=== PATIENT | male | born 1970 | race Hispanic/Latino ===

== ENCOUNTER 2017-03-22 23:38 | Inpatient (IN) | payer OTHER ==
[~2017-03-22] VITALS: Ht 157.5 cm; Wt 55.2 kg
[2017-03-23] VITALS (23 sets, daily range): BP systolic 101–147; BP diastolic 66–116
--- NOTE | 2017-03-23 00:28 | ED GU-Male ---
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 Exam Limitations: language barrier History of Present Illness Time seen by provider: 23:55 Initial Comments C/O BLOOD IN URINE AND PAIN/SWELLING IN RIGHT TESTICLE FOR OVER A MONTH WENT TO [facility] A MONTH AGO, AND UA DONE AND WAS PLACED ON CIPRO X 7 DAYS SYMPTOMS GOT BETTER, THEN RETURNED AGAIN 10 DAYS AGO C/O MUCH PAIN AND BURNING ON URINATION, AND HAS NOCTURIA 4-5 TIMES A NIGHT ( NEW PROBLEM) HAD SUBJECTIVE FEVER A COUPLE OF DAYS AGO HAS HAD BILATERAL LOWER BACK PAIN AND BILATERAL GROIN PAIN/SUPRAPUBIC PAIN TODAY HAS HAD NAUSEA AND VOMITING--CAN'T KEEP WATER DOWN NO HISTORY OF ANY SIMILAR PROBLEMS PRIOR TO A MONTH AGO PCP: [facility] Allergies and Home Medications Allergies Coded Allergies: No Known Drug Allergies (Unverified , 03/22/17) Constitutional: see HPI, fever Respiratory: no symptoms reported Cardiovascular: no symptoms reported Gastrointestinal: see HPI, abdominal pain, loss of appetite, nausea, vomiting Genitourinary: see HPI, burning, dysuria, flank pain, hematuria, pain, other ( NOCTURIA) Musculoskeletal: see HPI, back pain Skin: no symptoms reported Psychiatric/Neurological: No Symptoms Reported Endocrine: No Symptoms Reported Hematologic/Lymphatic: No Symptoms Reported Past Ohjwlbn-Jyrsmi-Ughfbe Hx Patient Social History Alcohol Use: Regular Use (HEAVY AT TIMES) Recreational Drug Use: No Smoking Status: Current Everyday Smoker (1/2 PPD) Recent Foreign Travel: No Contact w/Someone Who Travel: No Surgeries HX Surgeries: Yes (REMOVAL OF CYST ON SCALP) Respiratory Hx Respiratory Disorders: No Cardiovascular Hx Cardiac Disorders: Yes Cardiac Disorders: Hypertension Neurological Hx Neurological Disorders: No Reproductive System Hx Reproductive Disorders: No Genitourinary Hx Genitourinary Disorders: No Gastrointestinal Hx Gastrointestinal Disorders: No Musculoskeletal Hx Musculoskeletal Disorders: No Endocrine Hx Endocrine Disorders: Yes Endocrine Disorders: Diabetes, Non-Insulin dep HEENT HX ENT Disorders: No Cancer Hx Cancer: No Psychosocial Hx Psychiatric Problems: No Integumentary HX Skin/Integumentary Disorder: No Blood Transfusions Hx Blood Disorders: No Physical Exam Vital Signs Capillary Refill : General Appearance: WD/WN, no apparent distress Cardiovascular: regular rate, rhythm, no murmur Respiratory: normal breath sounds, no respiratory distress, no accessory muscle use Gastrointestinal: normal bowel sounds, soft, no organomegaly, tenderness ( SUPRAPUBIC) Male: inguinal tenderness (BILATERALLY), testicular tenderness (MARKED RIGHT TESTICULAR TENDERNESS, SWELLING, WARMTH, ERYTHEMA AND INDURATION. NO AREAS OF FLUCTUANCE. NO DRAINAGE. 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, no motor/sensory deficits, alert, normal mood/affect, oriented x 3 Skin: normal color, warm/dry, No rash Focused Exam Lactic Acid Level Laboratory Tests Test 03/23/17 01:21 Lactic Acid Level 0.95 MMOL/L (0.50-2.00) Progress/Results/Core Measures Results/Orders Lab Results Laboratory Tests Test 03/22/17 23:54 03/23/17 00:52 03/23/17 01:21 Range/Units Urine Color YELLOW Urine Clarity SLIGHTLY CLOUDY Urine pH 6 5-9 Urine Specific [place] 1.015 L 1.016-1.022 Urine Protein 3+ H NEGATIVE Urine Glucose (UA) 3+ H NEGATIVE Urine Ketones 4+ H NEGATIVE Urine Nitrite NEGATIVE NEGATIVE Urine Bilirubin NEGATIVE NEGATIVE Urine Urobilinogen NORMAL NORMAL MG/DL Urine Leukocyte Esterase 3+ H NEGATIVE Urine RBC (Auto) 5+ H NEGATIVE Urine RBC 25-50 H /HPF Urine WBC >100 H /HPF Urine Squamous Epithelial Cells 2-5 /HPF Urine Crystals NONE /LPF Urine Bacteria LARGE H /HPF Urine Casts NONE /LPF Urine Mucus NEGATIVE /LPF Urine Culture Indicated YES White Blood Count 27.1 H 4.3-11.0 10^3/uL Red Blood Count 4.01 L 4.35-5.85 10^6/uL Hemoglobin 11.9 L 13.3-17.7 G/DL Hematocrit 34 L 40-54 % Mean Corpuscular Volume 85 80-99 FL Mean Corpuscular Hemoglobin 30 25-34 PG Mean Corpuscular Hemoglobin Concent 35 32-36 G/DL Red Cell Distribution Width 11.8 10.0-14.5 % Platelet Count 431 H 130-400 10^3/uL Mean Platelet Volume 8.9 7.4-10.4 FL Neutrophils (%) (Auto) 88 H 42-75 % Lymphocytes (%) (Auto) 4 L 12-44 % Monocytes (%) (Auto) 8 0-12 % Eosinophils (%) (Auto) 0 0-10 % Basophils (%) (Auto) 0 0-10 % Neutrophils # (Auto) 23.9 H 1.8-7.8 X 10^3 Lymphocytes # (Auto) 1.2 1.0-4.0 X 10^3 Monocytes # (Auto) 2.0 H 0.0-1.0 X 10^3 Eosinophils # (Auto) 0.0 0.0-0.3 10^3/uL Basophils # (Auto) 0.0 0.0-0.1 10^3/uL Neutrophils % (Manual) 85 % Lymphocytes % (Manual) 3 % Monocytes % (Manual) 5 % Band Neutrophils 7 % Blood Morphology Comment NORMAL Sodium Level 127 L 135-145 MMOL/L Potassium Level 3.9 3.6-5.0 MMOL/L Chloride Level 90 L 98-107 MMOL/L Carbon Dioxide Level 21 21-32 MMOL/L Anion Gap 16 H 5-14 MMOL/L Blood Urea Nitrogen 14 7-18 MG/DL Creatinine 1.09 0.60-1.30 MG/DL Estimat Glomerular Filtration Rate > 60 BUN/Creatinine Ratio 13 Glucose Level 277 H 70-105 MG/DL Calcium Level 9.5 8.5-10.1 MG/DL Total Bilirubin 1.3 H 0.1-1.0 MG/DL Aspartate Amino Transf (AST/SGOT) 14 5-34 U/L Alanine Aminotransferase (ALT/SGPT) 25 0-55 U/L Alkaline Phosphatase 93 40-136 U/L Total Protein 7.7 6.4-8.2 G/DL Albumin 3.5 3.2-4.5 G/DL Amylase Level 23 L 25-125 U/L Lipase 9 8-78 U/L Lactic Acid Level 0.95 0.50-2.00 MMOL/L My Orders Orders - NAUN PANDA DO Amylase (03/22/17 23:56) Cbc With Automated Diff (03/22/17 23:56) Comprehensive Metabolic Panel (03/22/17 23:56) Lipase (03/22/17 23:56) Ua Culture If Indicated (03/22/17 23:56) Ct Abd/Pelvis Wo(Kidney Stone) (03/23/17 00:01) Acute Abd Series (03/23/17 00:01) Urine Culture (03/22/17 23:54) Manual Differential (03/23/17 00:52) Ceftriaxone Injection (Rocephin Injectio (03/23/17 01:15) Saline Lock/Iv-Start (03/23/17 01:10) Lactic Acid Analyzer (03/23/17 01:10) Blood Culture (03/23/17 01:10) Ondansetron Injection (Zofran Injectio (03/23/17 01:15) Ketorolac Injection (Toradol Injection) (03/23/17 01:10) Saline Lock/Iv-Start (03/23/17 01:10) Ns Iv 1000 Ml (Sodium Chloride 0.9%) (03/23/17 01:10) Medications Given in ED Current Medications Medications Dose Ordered Sig/[place]eno Route Start Time Stop Time Status Last Admin Dose Admin Ceftriaxone Sodium 1000 mg/ Sodium Chloride 50 ml @ 100 mls/hr ONCE ONCE IV 03/23/17 01:15 03/23/17 02:19 DC 03/23/17 02:01 100 MLS/HR Ondansetron HCl 4 mg ONCE ONCE IVP 03/23/17 01:15 03/23/17 02:19 DC 03/23/17 01:59 4 MG Sodium Chloride 1,000 ml @ 0 mls/hr Q0M ONCE IV 03/23/17 01:10 03/23/17 02:19 DC 03/23/17 01:59 1,000 MLS/HR Progress Note : Progress Note NO VOMITING DURING ER STAY Diagnostic Imaging Comments ACUTE ABDOMEN XRAYS--NO ACUTE PROCESS, PENDING RADIOLOGIST REVIEW CT ABDOMEN/PELVIS--BILATERAL PERINEPHRIC AND PERIURETERAL INFILTRATION, WITH MURAL THICKENING OF BLADDER-POSSIBLE PYELONEPHRITIS/CYSTITIS/UTI.. SCROTUM-- SUSPECTED HYDROCOELES, NON -SPECIFIC DENSITIES IN INGUINAL CANALS, MORE PROMINENT ON THE RIGHT-LIKELY VESSELS, PERHAPS VARICOCOELE ON RIGHT. RETROPERITONEAL ADENOPATHY; POSSIBLE RIGHT INGUINAL HERNIA REPAIR ( PT HAS NOT HAD HERNIA SURGERY ) SPLENOMEGALY--PER [facility] VIA FAX @ 1737 Reviewed: Reviewed by Me Departure Communication Progress Notes 4686--SPOKE WITH DR. CURTIS, DONOR RECRUITER FOR [facility], ACCEPTS PT FOR ADMIT Impression Impression: Primary Impression: Pyelonephritis Additional Impressions: Sepsis NIDDM RIGHT SCROTAL SWELLING AND ERYTHEMA AND TENDERNESS Electrolyte imbalance Disposition: ADMITTED INPATIENT Condition: Stable Departure-Patient Inst. Referrals: NO,LOCAL PHYSICIAN (PCP/Family) Primary Care Physician NAUN PANDA DO March 23, 2017 00:28
[2017-03-23 00:32] LABS: BILIRUBIN,URINE NEGATIVE (NEGATIVE); KETONES,URINE 4+ (NEGATIVE); LEUKOCYTE ESTERASE ,URINE 3+ (NEGATIVE); NITRITE,URINE NEGATIVE (NEGATIVE); PH,URINE 6 (5-9); PROTEIN,URINE 3+ (NEGATIVE); UROBILINOGEN,URINE NORMAL (NORMAL)
[2017-03-23 00:47] LABS: WBC,URINE >100 /HPF
[2017-03-23 01:03] LABS: BASOPHILS % (AUTO) 0 % (0-10); EOSINOPHILS % (AUTO) 0 % (0-10); LYMPHOCYTES # (AUTO) 1.2 X 10^3 (1.0-4.0); LYMPHOCYTES % (AUTO) 4 % (12-44); MEAN CORPUSCULAR HEMOGLOBIN 30 PG (25-34); MEAN CORPUSCULAR HGB CONC 35 G/DL (32-36); MEAN CORPUSCULAR VOLUME 85 FL (80-99); MEAN PLATELET VOLUME 8.9 FL (7.4-10.4); MONOCYTES % (AUTO) 8 % (0-12); NEUTROPHILS # (AUTO) 23.9 X 10^3 (1.8-7.8); NEUTROPHILS % (AUTO) 88 % (42-75); PLATELET COUNT 431 10^3/uL (130-400); RED BLOOD COUNT 4.01 10^6/uL (4.35-5.85); RED CELL DISTRIBUTION WIDTH 11.8 % (10.0-14.5); WHITE BLOOD COUNT 27.1 10^3/uL (4.3-11.0)
[2017-03-23] MEDS ORDERED: NS IV 1000 ML 1,000 ML IV ONE (01:10)
[2017-03-23] MEDS ORDERED: KETOROLAC 30 MG/ML VIAL IVP STA (01:10)
[2017-03-23] MEDS ORDERED: ONDANSETRON 4 MG/2 ML (SDV) Z0FRAN IVP ONE (01:15)
[2017-03-23] MEDS ORDERED: cefTRIAXone INJECTION 1,000 MG in NS (IVPB) 50 ML IV ONE (01:15)
[2017-03-23 01:24] LABS: ALANINE AMINOTRANSFERASE 25 U/L (0-55); ALBUMIN 3.5 G/DL (3.2-4.5); AMYLASE 23 U/L (25-125); ANION GAP 16 MMOL/L (5-14); ASPARTATE AMINO TRANSFERASE 14 U/L (5-34); BILIRUBIN,TOTAL 1.3 MG/DL (0.1-1.0); BLOOD UREA NITROGEN 14 MG/DL (7-18); BUN/CREATININE RATIO 13; CALCIUM 9.5 MG/DL (8.5-10.1); CARBON DIOXIDE 21 MMOL/L (21-32); CHLORIDE 90 MMOL/L (98-107); CREATININE SERUM 1.09 MG/DL (0.60-1.30); GFR ESTIMATED > 60; GLUCOSE 277 MG/DL (70-105); LIPASE 9 U/L (8-78); POTASSIUM 3.9 MMOL/L (3.6-5.0); SODIUM 127 MMOL/L (135-145); TOTAL PROTEIN 7.7 G/DL (6.4-8.2)
[2017-03-23 01:38] LABS: BAND NEUTROPHILS 7 %; LYMPHOCYTES % (MANUAL) 3 %; NEUTROPHILS % (MANUAL) 85 %
[2017-03-23] MEDS ORDERED: KETOROLAC 30 MG/ML VIAL ONE (01:38)
[2017-03-23] MEDS ORDERED: NS IV 1000 ML 1,000 ML ONE (01:38)
[2017-03-23] MEDS ORDERED: cefTRIAXone 1 GM (ROCEPHIN) VIAL ONE (01:39)
[2017-03-23] MEDS ORDERED: NS (IVPB) 50 ML ONE (01:39)
[2017-03-23] MEDS ORDERED: ONDANSETRON 4 MG/2 ML (SDV) Z0FRAN ONE (01:39)
[2017-03-23] MEDS: NS IV 1000 ML 1,000 ML IV SCH ×4 (02:54→22:16)
[2017-03-23] MEDS ORDERED: ONDANSETRON 4 MG (ZOFRAN) ORAL DISSOLVE TAB PO PRN (03:00)
[2017-03-23] MEDS ORDERED: LISI-556 PO (03:29)
[2017-03-23] MEDS ORDERED: METF500T8 PO (03:29)
[2017-03-23 04:16] LABS: BASOPHILS % (AUTO) 0 % (0-10); EOSINOPHILS % (AUTO) 0 % (0-10); LYMPHOCYTES # (AUTO) 1.3 X 10^3 (1.0-4.0); LYMPHOCYTES % (AUTO) 5 % (12-44); MEAN CORPUSCULAR HEMOGLOBIN 30 PG (25-34); MEAN CORPUSCULAR HGB CONC 35 G/DL (32-36); MEAN CORPUSCULAR VOLUME 86 FL (80-99); MEAN PLATELET VOLUME 9.1 FL (7.4-10.4); MONOCYTES # (AUTO) 1.6 X 10^3 (0.0-1.0); MONOCYTES % (AUTO) 7 % (0-12); NEUTROPHILS # (AUTO) 21.4 X 10^3 (1.8-7.8); NEUTROPHILS % (AUTO) 88 % (42-75); PLATELET COUNT 360 10^3/uL (130-400); RED BLOOD COUNT 3.59 10^6/uL (4.35-5.85); RED CELL DISTRIBUTION WIDTH 11.9 % (10.0-14.5); WHITE BLOOD COUNT 24.3 10^3/uL (4.3-11.0)
[2017-03-23 04:47] LABS: ALANINE AMINOTRANSFERASE 19 U/L (0-55); ALBUMIN 3.1 G/DL (3.2-4.5); ANION GAP 15 MMOL/L (5-14); ASPARTATE AMINO TRANSFERASE 12 U/L (5-34); BILIRUBIN,TOTAL 0.7 MG/DL (0.1-1.0); BLOOD UREA NITROGEN 14 MG/DL (7-18); BUN/CREATININE RATIO 15; CALCIUM 8.6 MG/DL (8.5-10.1); CARBON DIOXIDE 20 MMOL/L (21-32); CHLORIDE 96 MMOL/L (98-107); CREATININE SERUM 0.93 MG/DL (0.60-1.30); GFR ESTIMATED > 60; GLUCOSE 267 MG/DL (70-105); MAGNESIUM 1.4 MG/DL (1.8-2.4); PHOSPHORUS 3.7 MG/DL (2.3-4.7); POTASSIUM 3.6 MMOL/L (3.6-5.0); SODIUM 131 MMOL/L (135-145); TOTAL PROTEIN 6.7 G/DL (6.4-8.2)
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
[2017-03-23] MEDS: inSUlin (REGULAR) HUMAN 1 UNIT/0.01 ML (CHARGE PER UNIT) SC SCH ×4 (05:40→21:02)
[2017-03-23] MEDS ORDERED: POTASSIUM CL 10MEQ/50ML IVPB 50 ML IV ONE (05:45)
[2017-03-23] MEDS ORDERED: POTASSIUM CL 10MEQ/50ML IVPB 50 ML IV SCH (06:00)
[2017-03-23] MEDS ORDERED: MAGNESIUM 1 GM/100 ML IVPB 100 ML IV SCH (06:00)
[2017-03-23] MEDS ORDERED: KCL 20 MEQ TAB (K-DUR) PO SCH (06:00)
[2017-03-23] MEDS: KETOROLAC 30 MG/ML VIAL IV SCH ×3 (06:31→18:14)
[2017-03-23] MEDS: MAGNESIUM 1 GM/100 ML IVPB 100 ML IV SCH ×2 (06:31→07:37)
--- NOTE | 2017-03-23 08:07 | Diagnostic Imaging Report ---
EXAMINATION: Acute abdomen series at 1238h. INDICATION: Hematuria There are no prior plain film examinations available for comparison. The CT abdomen/pelvis exam performed prior to this study did note bilateral perinephric infiltration and mural thickening of the bladder. The possibility of pyelonephritis/cystitis was raised. The CT exam also suggests that there was mild splenomegaly. The accompanying erect PA chest is less than optimal as it is taken in shallow inspiration. Allowing for this technical factor the heart size is within normal limits and the lungs are clear. The mediastinum is not widened. The osseous structures are intact. There is bony overgrowth of the distal right clavicle. This could be a sequela of prior trauma as the clavicle does seem to be elevated with respect to the acromion. 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 Clinical followup is recommended. Supine and erect views of the abdomen were obtained. The splenic shadow is indeed enlarged. No other mass or organomegaly is identified. There is gas in both the large and small bowel in a nonspecific fashion. There is no evidence for a bowel obstruction. There is a fair amount of fecal material throughout the colon. There is no pathological calcification identified. The osseous osseous structures are intact. IMPRESSION: 1. The bowel gas pattern is nonspecific. There is no acute abnormality identified. 2. The spleen is enlarged. This of uncertain etiology. 3. The appearance of the right, acromioclavicular joint suggests a long-standing acromioclavicular separation. Clinical followup is recommended. Dictated by: Dictated on workstation # [id number]
--- NOTE | 2017-03-23 08:12 | Diagnostic Imaging Report ---
PROCEDURE: CT urinary tract, rule out kidney stone. TECHNIQUE: Multiple contiguous axial images were obtained through the abdomen and pelvis without the use of intravenous contrast. INDICATION: Hematuria, scrotal swelling. No priors. FINDINGS: There are no opaque urinary tract calculi. There is very slight bilateral pyelocaliectasis and ureteral ectasia on the left. There is perinephric and periureteric edema and stranding and infiltration. There is thickening of the urinary bladder zhang its incompletely distended likely exaggerated in its wall thickening that measures up to 11 mm. Correlate for cystitis. Pyelonephritis could not be excluded as well. No evidence for renal abscess and no perinephric fluid collection. There is left periaortic retroperitoneal adenopathy a node just below the level of the left renal vein measures 1.7 cm. A node just left of the aorta above its bifurcation is 1.8 cm. Smaller subcentimeter periaortic nodes noted throughout. Air-containing appendix visualized and normal. The liver, gallbladder, spleen, adrenals and pancreas were unremarkable. The abdominal aorta is nonaneurysmal. There is no pneumatosis or free air. There is no abdominal pelvic ascites or abscess. There is hyperdense thickening along the right inguinal canal and spermatic cord to the level of the scrotum where there are bilateral hydroceles greater right. Varicocele on the right could not be excluded. The lung bases and the osseous structures were nonacute. IMPRESSION: Very minimal bilateral pyelocaliectasis and ureteral ectasia perinephric and periureteric edema and infiltration without visualized stone. Abnormal thickening of the urinary bladder zhang. The urinary tract infection including cystitis and/or pyelonephritis could not be excluded. Left para-aortic retroperitoneal adenopathy may be reactive but warrants followup. Bilateral hydroceles with suspicion for right-sided varicocele. Some infiltrative changes along the thickened right spermatic cord and inguinal canal. I consider scrotal Doppler and ultrasound as further evaluation. Dictated by: Dictated on workstation # [id number]
--- NOTE | 2017-03-23 08:54 | Diagnostic Imaging Report ---
INDICATION: Right testicular pain and swelling. COMPARISON: None. DISCUSSION: Sonographic evaluation of the scrotum was performed. The right epididymis is heterogenous and hypervascular, most consistent with epididymitis. There is a loculated hgid-ax-lmwywora right hydrocele, likely reactive. There is mild right scrotal wall thickening, likely also reactive. The left epididymis is unremarkable. There is a simple appearing mild left hydrocele. No varicocele. The testicles are normal and symmetric in echotexture and size bilaterally with normal color Doppler blood flow. The right testicle measures 4.2 x 3.3 x 4.4 cm. The left testicle measures 4.6 x 1.8 x 3.3 cm. IMPRESSION: 1. Right epididymitis. 2. Bilateral hydroceles, complex on the right. Dictated by: Dictated on workstation # [id number]
[2017-03-23] MEDS: lisINopril 5 MG (PRINIVIL) TABLET PO SCH (10:07)
[2017-03-23] MEDS: metFORMIN XR 500 MG (GLUCOPHAGE XR) TAB PO SCH ×2 (11:49→21:02)
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
--- NOTE | 2017-03-23 21:13 | CONSULTATION REPORT ---
DATE OF SERVICE: 03/23/2017 ATTENDING PHYSICIAN: Dr. Hernandez. HISTORY OF PRESENT ILLNESS: This is a 46-year-old white man admitted because of fever and pain in the right testicle. He was previously treated for the same condition apparently in the past about a month ago. Most of the information was obtained from Dr. Hernandez and the history and physical. The patient's speak Setswana and I do not speak Setswana. However I understand that he complained of pain and swelling of the right testicle. PHYSICAL EXAMINATION: GENITOURINARY: He has signs and symptoms of epididymal orchitis on the right side. He is on Rocephin. IMPRESSION: Right epididymal orchitis. PLAN: 1. Continue Rocephin. 2. Ice p.r.n. 3. Scrotal support. 4. We will see him on a p.r.n. basis. Job ID: [id number] DocumentID: [id number] Dictated Date: 03/23/2017 12:47:21 Pressure Washer Date: 03/23/2017 21:12:18 Dictated By: ISELA ALEXANDRA MD
[2017-03-24] VITALS: BP 112/73
[2017-03-24] MEDS: KETOROLAC 30 MG/ML VIAL IV SCH ×4 (00:10→18:10)
[2017-03-24] MEDS: cefTRIAXone 1 GM/NS 50 ML IVPB IV SCH ×4 (00:14→23:57)
[2017-03-24] MEDS ORDERED: ACETAMINOPHEN 500 MG TAB (TYLENOL) PO PRN (01:00)
[2017-03-24 03:00] VITALS: BP 117/69
[2017-03-24 05:16] LABS: BASOPHILS % (AUTO) 0 % (0-10); EOSINOPHILS # (AUTO) 0.1 10^3/uL (0.0-0.3); EOSINOPHILS % (AUTO) 0 % (0-10); LYMPHOCYTES # (AUTO) 1.5 X 10^3 (1.0-4.0); LYMPHOCYTES % (AUTO) 9 % (12-44); MEAN CORPUSCULAR HEMOGLOBIN 29 PG (25-34); MEAN CORPUSCULAR HGB CONC 33 G/DL (32-36); MEAN CORPUSCULAR VOLUME 89 FL (80-99); MEAN PLATELET VOLUME 9.9 FL (7.4-10.4); MONOCYTES # (AUTO) 0.8 X 10^3 (0.0-1.0); MONOCYTES % (AUTO) 5 % (0-12); NEUTROPHILS % (AUTO) 86 % (42-75); PLATELET COUNT 324 10^3/uL (130-400); RED BLOOD COUNT 3.32 10^6/uL (4.35-5.85); RED CELL DISTRIBUTION WIDTH 12.1 % (10.0-14.5); WHITE BLOOD COUNT 16.3 10^3/uL (4.3-11.0)
[2017-03-24] MEDS: NS IV 1000 ML 1,000 ML IV SCH ×3 (05:38→18:55)
[2017-03-24 05:39] LABS: ALANINE AMINOTRANSFERASE 42 U/L (0-55); ALBUMIN 2.6 G/DL (3.2-4.5); ANION GAP 9 MMOL/L (5-14); ASPARTATE AMINO TRANSFERASE 44 U/L (5-34); BILIRUBIN,TOTAL 0.3 MG/DL (0.1-1.0); BLOOD UREA NITROGEN 13 MG/DL (7-18); BUN/CREATININE RATIO 17; CARBON DIOXIDE 22 MMOL/L (21-32); CHLORIDE 107 MMOL/L (98-107); CREATININE SERUM 0.76 MG/DL (0.60-1.30); GFR ESTIMATED > 60; GLUCOSE 191 MG/DL (70-105); POTASSIUM 3.5 MMOL/L (3.6-5.0); SODIUM 138 MMOL/L (135-145); TOTAL PROTEIN 5.7 G/DL (6.4-8.2)
[2017-03-24] MEDS: inSUlin (REGULAR) HUMAN 1 UNIT/0.01 ML (CHARGE PER UNIT) SC SCH ×4 (06:38→21:46)
[2017-03-24 08:04] VITALS: BP 115/72
[2017-03-24] MEDS: lisINopril 5 MG (PRINIVIL) TABLET PO SCH (08:42)
[2017-03-24] MEDS: metFORMIN XR 500 MG (GLUCOPHAGE XR) TAB PO SCH ×2 (08:42→21:46)
--- NOTE | 2017-03-24 11:56 | Progress Note-Hospitalist ---
Subjective HPI/CC On Admission CC: Blood in urine HPI: This is a 46yoHM of [facility] that presented to ER with blood in urine and swelling in right testicle. He had UA done one month ago and placed on Cipro for 7 days and did good but then returned to clinic. Pt remains afebrile. 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 Dr Hernandez speaks to him in medical Bhutanese Pt has had blood in urine for the past month. Pt is diabetic. Dr. Ramos is not on-board yet but will consult him. Pt can go down to floor. Patient Interview: Pt states he is doing better. Pt denies pain then states he has pain. Pt denies vomiting. Pt states he smokes and drinks ETOH. Pt states he is on vacation currently. Pt was told that Dr. Ramos will see him today. Pt states he would like medication for his pain. Scribed by Charles Estrada under the direct supervision of Dr. Hernandez. Date Seen 03/24/17 Subjective/Events-last exam patient continues to complain of pain in the right scrotum and and a Right swollen inguinal node.. he denies having any nausea, vomiting and is eating well. Review of Systems Genitourinary: Dysuria Objective Exam Vital Signs Vital Sign - Last 12Hours 03/23/17 00:52 Temp 98.2 Pulse 133 Resp 20 B/P (MAP) 140/94 Pulse Ox 99 O2 Delivery Room Air Capillary Refill : Less Than 3 Seconds General Appearance: No Apparent Distress Neck: Supple Respiratory: Lungs Clear, Normal Breath Sounds, No Accessory Muscle Use Cardiovascular: Regular Rate, Rhythm, No Gallop, No Murmur Gastrointestinal: No Organomegaly, Soft Genital/Rectal: Other (very hard, swollen right testicle with right inguinal adenopathy. Uncircumcised male) Neurologic/Psychiatric: Alert, Oriented x3, No Motor/Sensory Deficits Results/Procedures Lab Laboratory Tests 03/24/17 04:15 Assessment/Plan Assessment and Plan Assess & Plan/Chief Complaint Acute UTI with sepsis with leukocytosis in diabetic with right testicular pain and swelling with right sided epididymitis and bilateral hydroceles on ultrasound and CT scan-Dr. Grace's consult appreciated, day number 3 Rocephin- improving slowly Diabetes mellitus out of control on metformin Smoker Heavy alcohol consumption anemia KRIS BRUSH MD March 24, 2017 11:56
[2017-03-24 12:00] VITALS: BP 115/72
[2017-03-24 16:00] VITALS: BP 125/86
[2017-03-24] MEDS ORDERED: ACETAMINOPHEN 325 MG TABLET/CAPLET (TYLENOL) ONE (18:05)
[2017-03-24] MEDS ORDERED: ACETAMINOPHEN 325 MG TABLET/CAPLET (TYLENOL) PO PRN (18:15)
[2017-03-24 19:20] VITALS: BP 116/75
[2017-03-25] VITALS: BP 135/77
[2017-03-25] MEDS: KETOROLAC 30 MG/ML VIAL IV SCH ×4 (01:11→19:39)
[2017-03-25] MEDS: NS IV 1000 ML 1,000 ML IV SCH ×4 (02:39→17:38)
[2017-03-25 04:00] VITALS: BP 132/79
[2017-03-25] MEDS: inSUlin (REGULAR) HUMAN 1 UNIT/0.01 ML (CHARGE PER UNIT) SC SCH ×4 (05:41→21:32)
[2017-03-25 08:00] VITALS: BP 123/80
[2017-03-25] MEDS: metFORMIN XR 500 MG (GLUCOPHAGE XR) TAB PO SCH ×2 (08:18→21:31)
[2017-03-25] MEDS: lisINopril 5 MG (PRINIVIL) TABLET PO SCH (08:18)
--- NOTE | 2017-03-25 11:44 | Progress Note-Hospitalist ---
Subjective HPI/CC On Admission CC: Blood in urine HPI: This is a 46yoHM of [facility] that presented to ER with blood in urine and swelling in right testicle. He had UA done one month ago and placed on Cipro for 7 days and did good but then returned to clinic. Pt remains afebrile. 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 Dr Hernandez speaks to him in medical Citizen Of [place] Pt has had blood in urine for the past month. Pt is diabetic. Dr. Ramos is not on-board yet but will consult him. Pt can go down to floor. Patient Interview: Pt states he is doing better. Pt denies pain then states he has pain. Pt denies vomiting. Pt states he smokes and drinks ETOH. Pt states he is on vacation currently. Pt was told that Dr. Ramos will see him today. Pt states he would like medication for his pain. Scribed by Charles Estrada under the direct supervision of Dr. Hernandez. Date Seen 03/25/17 Subjective/Events-last exam Arnold says his pain is down to a level I of 10. He's feeling better. White count is down a little Review of Systems Genitourinary: Other Objective Exam Vital Signs Vital Sign - Last 12Hours 03/23/17 00:52 Temp 98.2 Pulse 133 Resp 20 B/P (MAP) 140/94 Pulse Ox 99 O2 Delivery Room Air Capillary Refill : Less Than 3 Seconds General Appearance: No Apparent Distress, WD/WN HEENT: Normal ENT Inspection Neck: Supple Respiratory: Lungs Clear, Normal Breath Sounds Cardiovascular: Regular Rate, Rhythm, No Gallop, No Murmur Genital/Rectal: Other (right testicle is about the size of the baseball very indurated and tender) Neurologic/Psychiatric: Alert, Oriented x3, No Motor/Sensory Deficits, Normal Mood/Affect Assessment/Plan Assessment and Plan Assess & Plan/Chief Complaint Acute UTI with sepsis with leukocytosis in diabetic with orchitis and swelling with right sided epididymitis and bilateral hydroceles on ultrasound and CT scan -Dr. Grace's consult appreciated, day number 3 Rocephin-improving slowly Diabetes mellitus out of control on metformin Smoker Heavy alcohol consumption anemia KRIS BRUSH MD March 25, 2017 11:44
[2017-03-25 12:00] VITALS: BP 136/81
[2017-03-25 15:50] VITALS: BP 128/81
[2017-03-25 20:10] VITALS: BP 138/78
[2017-03-25] MEDS: cefTRIAXone 1 GM/NS 50 ML IVPB IV SCH ×2 (23:47)
[2017-03-26] VITALS: BP 131/88
[2017-03-26] MEDS: NS IV 1000 ML 1,000 ML IV SCH ×2 (00:10→08:30)
[2017-03-26] MEDS: KETOROLAC 30 MG/ML VIAL IV SCH ×3 (01:43→12:40)
[2017-03-26 04:00] VITALS: BP 136/80
[2017-03-26] MEDS: inSUlin (REGULAR) HUMAN 1 UNIT/0.01 ML (CHARGE PER UNIT) SC SCH ×2 (05:39→12:23)
[2017-03-26 08:00] VITALS: BP 126/75
[2017-03-26] MEDS: lisINopril 5 MG (PRINIVIL) TABLET PO SCH (08:30)
[2017-03-26] MEDS: metFORMIN XR 500 MG (GLUCOPHAGE XR) TAB PO SCH (08:30)
[2017-03-26 12:00] VITALS: BP 143/87
[2017-03-26 12:05] LABS: BASOPHILS % (AUTO) 0 % (0-10); EOSINOPHILS # (AUTO) 0.1 10^3/uL (0.0-0.3); EOSINOPHILS % (AUTO) 1 % (0-10); LYMPHOCYTES # (AUTO) 1.1 X 10^3 (1.0-4.0); LYMPHOCYTES % (AUTO) 10 % (12-44); MEAN CORPUSCULAR HEMOGLOBIN 29 PG (25-34); MEAN CORPUSCULAR HGB CONC 33 G/DL (32-36); MEAN CORPUSCULAR VOLUME 89 FL (80-99); MEAN PLATELET VOLUME 9.2 FL (7.4-10.4); MONOCYTES # (AUTO) 0.7 X 10^3 (0.0-1.0); MONOCYTES % (AUTO) 7 % (0-12); NEUTROPHILS # (AUTO) 8.7 X 10^3 (1.8-7.8); NEUTROPHILS % (AUTO) 82 % (42-75); PLATELET COUNT 341 10^3/uL (130-400); RED BLOOD COUNT 3.41 10^6/uL (4.35-5.85); RED CELL DISTRIBUTION WIDTH 12.3 % (10.0-14.5); WHITE BLOOD COUNT 10.6 10^3/uL (4.3-11.0)
--- NOTE | 2017-03-26 12:36 | Progress Note-Hospitalist ---
Standard Progress Note Progress Notes/Assess & Plan Date Seen 03/26/17 Diagnosis Assessment: Acute UTI with sepsis with leukocytosis in diabetic with right testicular pain and swelling with right sided epididymitis and bilateral hydroceles on ultrasound and CT scan Diabetes mellitus out of control on metformin Smoker Heavy alcohol consumption Assess & Plan/Chief Complaint The patient is a 46-year-old diabetic male. He speaks very little French. I speak very little Afghan. He was admitted with what appears to be in an epididymal orchitis. He has been seen in consultation by Dr. Ramos. He apparently had been treated several weeks ago with Cipro and reported that he had considerable improvement for a while. At admission his white count was 27, 000. Subsequently it fell to 16,300 and today to 10,600. There is been no fever. He reports that the size and pain with regard to the right testicle have declined each day. He grew Escherichia coli through the urine. This was widely susceptible to everything but ampicillin products and Bactrim. I discussed the case with Dr. Ramos and he allowed that he was ready for discharge. He would fear additional bacteria besides the Escherichia coli that would have inflamed him at the epididymal level. Therefore the plan would be to use a cephalosporin such as Omnicef and to add Vibramycin 100 mg twice daily. Physical exam: The patient is comfortable and quite pleasant. He is using a suspensory. The right testicle is quite swollen, somewhat red and tender. The left appears nearly normal. Lungs are clear to auscultation. CV is regular without murmur. Impression: Right epididymal orchitis. 2.diabetes mellitus marginally controlled Plan: See discharge instructions. Labs Laboratory Tests 03/26/17 11:50 Final Diagnosis 1.right epididymal orchitis. 2.diabetes BERNARDO DUENAS MD March 26, 2017 12:36
[2017-03-26] MEDS ORDERED: DOXY100C PO (12:43)
[2017-03-26] MEDS ORDERED: CEFD300C3 PO (12:43)
--- NOTE | 2017-03-26 12:46 | Discharge Inst-Simple/Standard ---
Discharge Inst-Standard Discharge Medications New, Converted or Re-Newed RX: RX on Chart Patient Instructions/Follow Up Plan of Care/Instructions/FU: Use suspensory. Elevate scrotum and ice when feasible. Antibiotics as ordered Appointment community health one week Activity as Tolerated: Yes Goal: Resolution of genital infectION Discharge Diet: ADA Diet Return to The Hospital For: Decline in condition BERNARDO DUENAS MD March 26, 2017 12:45
== END 2017-03-26 13:00 | disposition home or self-care (01) | DRG 872 ==
LOC: ER 23:45 → ICU 03-23 01:30 → 4TH 03-23 14:08
PROVIDERS: ADMIT Internal Medicine; ATTEND Internal Medicine
DX: A41.9 Sepsis, unspecified organism (principal); N45.2 Orchitis; N39.0 Urinary tract infection, site not specified; E11.65 Type 2 diabetes mellitus with hyperglycemia; F17.210 Nicotine dependence, cigarettes, uncomplicated; N43.3 Hydrocele, unspecified; D64.9 Anemia, unspecified
CPT/HCPCS: 36415; 74022; 74176; 76870; 80053; 81000; 82150; 82962; 83605; 83690; 83735; 84100; 85007; 85025; 85027; 87040; 87077; 87081; 87088; 87186; 96361; 96365; 96375

== ENCOUNTER 2017-03-29 14:16 | Emergency (ER) | payer SELFPAY ==
[~2017-03-29] VITALS: Ht 172.7 cm; Wt 68.0 kg
[~2017-03-29 14:16] MED LIST: CEFD300C3 PO; DOXY100C PO; LISI-556 PO; METF500T8 PO
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
[2017-03-29] MEDS ORDERED: HYDROcodone/APAP 5 MG/325 MG (LORTAB) TAB PO ONE (15:00)
[2017-03-29 15:07] LABS: BILIRUBIN,URINE NEGATIVE (NEGATIVE); KETONES,URINE NEGATIVE (NEGATIVE); LEUKOCYTE ESTERASE ,URINE 3+ (NEGATIVE); NITRITE,URINE NEGATIVE (NEGATIVE); PH,URINE 7 (5-9); PROTEIN,URINE NEGATIVE (NEGATIVE); UROBILINOGEN,URINE NORMAL (NORMAL)
[2017-03-29 15:15] LABS: BASOPHILS % (AUTO) 0 % (0-10); EOSINOPHILS # (AUTO) 0.1 10^3/uL (0.0-0.3); EOSINOPHILS % (AUTO) 1 % (0-10); LYMPHOCYTES # (AUTO) 1.4 X 10^3 (1.0-4.0); LYMPHOCYTES % (AUTO) 13 % (12-44); MEAN CORPUSCULAR HEMOGLOBIN 29 PG (25-34); MEAN CORPUSCULAR HGB CONC 33 G/DL (32-36); MEAN CORPUSCULAR VOLUME 87 FL (80-99); MEAN PLATELET VOLUME 8.9 FL (7.4-10.4); MONOCYTES # (AUTO) 0.9 X 10^3 (0.0-1.0); MONOCYTES % (AUTO) 7 % (0-12); NEUTROPHILS # (AUTO) 9.1 X 10^3 (1.8-7.8); NEUTROPHILS % (AUTO) 79 % (42-75); PLATELET COUNT 442 10^3/uL (130-400); RED BLOOD COUNT 3.69 10^6/uL (4.35-5.85); RED CELL DISTRIBUTION WIDTH 12.4 % (10.0-14.5); WHITE BLOOD COUNT 11.5 10^3/uL (4.3-11.0)
[2017-03-29 15:19] LABS: SQUAMOUS EPITHELIAL CELL,UR RARE /HPF
[2017-03-29] MEDS ORDERED: cefTRIAXone INJECTION 1,000 MG in NS (IVPB) 50 ML IV ONE (15:45)
--- NOTE | 2017-03-29 16:05 | Diagnostic Imaging Report ---
Scrotal ultrasound. INDICATION: Worsening right testicular pain. Check for abscess. COMPARISON: Scrotal ultrasound on 03/23/2017. FINDINGS: The right testicle is 4.4 x 3 x 3.7 cm. The left testicle is 4.1 x 2.1 x 2.7 cm. There is no intratesticular flow demonstrated with color Doppler in the right testicle. The left testicle demonstrates color flow with arterial waveforms seen. Venous waveforms are also demonstrated. There is a small left simple-appearing hydrocele and a complex-appearing relatively small hydrocele seen around the right testicle. There is still hyperemia and swelling in the right epididymis. IMPRESSION: 1. There is lack of flow in the right testicle concerning for testicular torsion. Emergent urologic consultation is recommended. 2. Right epididymitis. 3. Small complex right hydrocele may relate to debris or possible abscess. No intratesticular abscess. Critical findings were called to the ER and discussed with Mr. Barney Aguilera, ER physician shampoo assistant, by Dr. Marroquin at 03:56 p.mCarl Dictated by: Dictated on workstation # [id number]
[2017-03-29 16:32] LABS: ANION GAP 9 MMOL/L (5-14); BLOOD UREA NITROGEN 8 MG/DL (7-18); BUN/CREATININE RATIO 10; CALCIUM 8.9 MG/DL (8.5-10.1); CARBON DIOXIDE 26 MMOL/L (21-32); CHLORIDE 97 MMOL/L (98-107); CREATININE SERUM 0.81 MG/DL (0.60-1.30); GFR ESTIMATED > 60; GLUCOSE 304 MG/DL (70-105); POTASSIUM 3.6 MMOL/L (3.6-5.0); SODIUM 132 MMOL/L (135-145)
[2017-03-29] MEDS ORDERED: inSUlin (REGULAR) HUMAN 1 UNIT/0.01 ML (CHARGE PER UNIT) SC ONE (16:45)
[2017-03-29 17:20] VITALS: BP 128/70
== END 2017-03-29 17:20 | disposition short-term general hospital (02) ==
LOC: EDUNIT# 14:16 → ER 14:19
DX: N45.3 Epididymo-orchitis (principal); N39.0 Urinary tract infection, site not specified; N43.3 Hydrocele, unspecified; N44.00 Torsion of testis, unspecified; I10 Essential (primary) hypertension; E11.9 Type 2 diabetes mellitus without complications; Z79.84 Long term (current) use of oral hypoglycemic drugs; Z79.899 Other long term (current) drug therapy
CPT/HCPCS: 36415; 76870; 80048; 81000; 85025; 87088; 96372; 96374